=== PATIENT | male | born 2005 | race Caucasian/White ===

== ENCOUNTER 2023-02-13 11:29 | Day surgery (SDC) | payer OTHER, SELFPAY ==
--- NOTE | 2023-02-13 | PATH_ITS ---
[facility] Accession Number: [id number] No. of containers..02 Tissue . 01 Material submitted: . PART A: esophagus - ESOPHAGUS PART B: esophagus, E-G Junction - GE JUNCTION MASS . 01 Diagnosis: A. Esophagus, Biopsy: Squamous mucosa with mild reactive features of reflux esophagitis. Up to 2 eosinophils per high-power field. Negative for fungal organisms on AB/PAS stain. Negative for dysplasia or malignancy. . B. Gastroesophgeal Junction Mass, Biopsy: Squamocolumnar junctional mucosa with ulcer, consistent with severe reflux esophagitis. Negative for specialized intestinal metaplasia or fungal organisms on AB/PAS stain. Negative for cytomegalovirus or herpes simplex virus inclusions by immunohistochemistry. Negative for dysplasia or malignancy; please see comment. [facility] 02/21/2023 1443 Local . 01 Comment: Part B: The endoscopic impression of a gastroesophageal junction mass is noted. No neoplasm is identified in the sampled material. Correlation with clinical, endoscopic, and imaging findings to determine if this is business development representative of the lesion is recommended. . 01 Electronically signed: . Blas Chapman MD, PhD, Pathologist NPI- [id number] . 01 Gross description: . Part A: ESOPHAGUS: Received in formalin is multiple fragment(s) of arias, soft tissue measuring 0.3 x 0.1 x 0.1 cm in aggregate submitted entirely in 1 cassette(s) Part B: GE JUNCTION MASS: Received in formalin is multiple fragment(s) of arias, soft tissue measuring 0.7 x 0.4 x 0.1 cm in aggregate submitted entirely in 1 cassette(s) /[facility] 02/19/2023 1122 Local . 01 Microscopic: . A. An AB/PAS stain is performed to evaluate for fungal organisms and is negative. A control stain shows appropriate reactivity. . B. An AB/PAS stain is performed to evaluate for fungal organisms and is negative. Immunohistochemical stains are negative for cytomegalovirus or herpes simplex virus inclusions, respectively. All control stains show appropriate reactivity. . * This test was developed and its performance characteristics determined by [employer]. It has not been cleared or approved by the U.S. Food and Drug Administration. The FDA has determined that such clearance or approval is not necessary. This test is used for clinical purposes. It should not be regarded as investigational or for research. . 01 Pathologist provided ICD-10: R13.14, K21.00, K22.10 . 01 CPT . 862007, 862454, 901707, 882388, J42208, T36924 Specimen Comment: A courtesy copy of this report has been sent to [phone] Performed at: 01 [facility] Cyt[facility] [address] [place] [address], [place], [place] [id number] MD Stiven Betancourt MD Phone: [phone]
[2023-02-13 11:45] VITALS: BMI 31.7
[2023-02-13 11:48] VITALS: BP 135/81; PULSE 67; RESP 18; TEMP 36.2; O2SAT 97
[2023-02-13] MEDS: LACTATED RINGERS 1,000 ML 42 ML IV (11:56)
--- NOTE | 2023-02-13 12:32 | PM.PREOP ---
Pre-operative Note COVID-19 COVID-19 status: Negative Interval Note History & Physical reviewed/Exam performed by Physician: Yes Changes to H&P: No ASA Class (for procedural sedation): II
--- NOTE | 2023-02-13 12:33 | PM.OP.EGD ---
Operative Date/Time/Diagnoses Date of procedure: 02/13/23 Pre-op diagnosis: See indication and findings Procedure & Clinicians Study performed: EGD and possible dilation Indications: GE reflux regurgitation and substernal dysphagia Surgeon: Drew Dupont Procedure Notes Procedure in detail: After informed consent was obtained the patient was placed in left lateral decubitus position. The video upper scope was placed into the oropharynx and with the patient's help swelled into the esophagus. The esophagus stomach and duodenum were carefully examined. On withdrawal, retroflexed view the GE junction was performed. The scope was removed. The patient tolerated procedure well. Blood loss none Complications none Sedation mac Findings 1. Subtle furrows a longitudinal streaks from the mid to distal esophagus biopsies taken to rule out eosinophilic esophagitis 2. Wide open lower esophageal sphincter with focal superficial ulceration but also masslike sensation measuring about 2.5 cm. The center of this appeared adenomatous grossly. Biopsies were taken 3. Normal stomach 4. Normal duodenal bulb and sweep We will merely await biopsies before next steps. Certainly is possible that this area connected with significant ulceration could just be benign.
[2023-02-13 13:29] VITALS: BP 119/62; PULSE 82; RESP 13; TEMP 36.7; O2SAT 93
[2023-02-13 13:34] VITALS: BP 111/61; PULSE 65; RESP 20; O2SAT 97
[2023-02-13 13:39] VITALS: BP 119/75; PULSE 62; RESP 20; O2SAT 99
--- NOTE | 2023-02-13 13:44 | SUR.PHASEI ---
Dr. Dupont came and talked to pt. about his results.
[2023-02-13 13:45] VITALS: BP 134/87; PULSE 52; RESP 16; TEMP 36.4; O2SAT 99
== END 2023-02-13 15:41 | disposition home or self-care (01) ==
PROVIDERS: Referring Provider Internal Medicine Gastroenterology; Visit Provider Internal Medicine Gastroenterology
PROC: 0DJ08ZZ Inspection of Upper Intestinal Tract, Via Natural or Artificial Opening Endoscopic (ICD-10-PCS; CPT 43235; principal; 2023-02-13 12:30)
DX: K21.9 Gastro-esophageal reflux disease without esophagitis (principal); R13.14 Dysphagia, pharyngoesophageal phase; R11.10 Vomiting, unspecified; R12 Heartburn
CPT/HCPCS: 43239; J2704

== ENCOUNTER 2023-07-10 07:57 | Day surgery (SDC) | payer OTHER, SELFPAY ==
--- NOTE | 2023-07-10 | PATH_ITS ---
[facility] Accession Number: [id number] No. of containers..01 Tissue . 01 Material submitted: . esophagus - GE JUNCTION . 01 Diagnosis: Gastroesophageal Junction, Biopsy: Squamocolumnar junctional mucosa with reactive features of reflux esophagitis. Negative for specialized intestinal metaplasia on Alcian blue stain. Negative for dysplasia and malignancy. [facility] 07/23/2023 1114 Local . 01 Electronically signed: . Blas Chapman MD, PhD, Pathologist NPI- [id number] . 01 Gross description: . GE JUNCTION: Received in formalin is 2 fragment(s) of arias, soft tissue measuring 0.3 x 0.3 x 0.1 cm to 0.3 x 0.2 x 0.1 cm submitted entirely in 1 cassette(s) /[facility] 07/11/2023 0537 Local . 01 Microscopic: . An AB/PAS stain is performed to evaluate for specialized intestinal metaplasia and is negative for goblet cells. A control stain shows appropriate reactivity. . 01 Pathologist provided ICD-10: K21.00, R13.14 . 01 CPT . 888881, 071351 Specimen Comment: A courtesy copy of this report has been sent to [phone] Performed at: 01 [facility] [address], [place], [place] [id number] MD Stiven Betancourt MD Phone: [phone]
[2023-07-10 08:12] VITALS: BMI 32.5
[2023-07-10 08:18] VITALS: BP 127/81; PULSE 84; RESP 19; TEMP 36.3; O2SAT 95
[2023-07-10] MEDS: LACTATED RINGERS 1,000 ML 42 ML IV (08:22)
--- NOTE | 2023-07-10 08:33 | PM.HP.1 ---
History of Present Illness History of Present Illness Date Patient Seen: 07/10/23 Chief complaint: EGD Narrative: History of esophagitis with need to follow up and ensure complete healing. Possible removal of hyperplastic polyp [facility] Medical History (Updated 02/13/23 @ 11:44 by Christofer Diaz RN) Acid reflux Anxiety Social History household members: family Smoking Status: Current some day smoker Meds Home Medications and Allergies Home Medications Medication Instructions Recorded Confirmed Type sertraline 100 mg tablet 200 mg PO DAILY 02/13/23 07/10/23 History omeprazole 20 mg capsule,delayed 20 mg PO BID 07/10/23 07/10/23 History release Allergies Allergy/AdvReac Type Severity Reaction Status Date / Time No Known Drug Allergies Allergy Verified 07/10/23 08:11 Exam Vital Signs (past 8 hours): - 07/10/23 08:18 Temperature 97.3 F L Pulse Rate 84 Respiratory Rate 19 Blood Pressure 127/81 Pulse Oximetry 95 Oxygen Delivery Method Room Air Oxygen Delivery Method Room Air Narrative Exam Narrative: Oropharynx free of lesions Chest clear to auscultation percussion Cardiac exam reveals no S3 or murmur Assessment & Plan Assessment & Plan narrative: History of significant esophagitis need to check for complete healing while on omeprazole b.i.d.. Also possibility of hyperplastic polyp removal at the GE junction. Risks, benefits, alternatives have been explained.
--- NOTE | 2023-07-10 08:47 | PM.OP.EGD ---
Operative Date/Time/Diagnoses Date of procedure: 07/10/23 Pre-op diagnosis: See indication and findings Procedure & Clinicians Study performed: EGD Indications: Check for healing of esophagitis Surgeon: Drew Dupont Procedure Notes Procedure in detail: After informed consent was obtained the patient was placed in left lateral decubitus position. The video upper scope was placed into the oropharynx and with the patient's help swallowed into the esophagus. The esophagus stomach and duodenum were carefully examined. On withdrawal, retroflexed view the GE junction was performed. The scope was removed. The patient tolerated procedure well. Blood loss none Complications none Sedation mac Findings 1. Esophagus with some degree of free reflux. GE junction was completely free of any inflammatory disease. Previous structure call they ?possible inflammatory polyp? is far smaller and less polypoid. The area was biopsied x2 which covered most of it. It was elected given its appearance and sedation to not proceed further. 2. Normal stomach duodenal bulb and sweep Patient should continue his omeprazole due to is of significant reflux and return in 1 year for follow-up EGD and biopsy if necessary under heavy sedation.
[2023-07-10 09:30] VITALS: BP 106/56; PULSE 93; RESP 23; TEMP 37.3; O2SAT 96
[2023-07-10 09:35] VITALS: BP 116/65; PULSE 87; RESP 13; O2SAT 93
[2023-07-10 09:40] VITALS: BP 101/63; PULSE 82; RESP 12; O2SAT 94
[2023-07-10 09:45] VITALS: BP 101/66; PULSE 76; RESP 14; TEMP 36.6; O2SAT 96
== END 2023-07-10 10:00 | disposition home or self-care (01) ==
PROVIDERS: Referring Provider Internal Medicine Gastroenterology; Visit Provider Internal Medicine Gastroenterology
PROC: 0DJ08ZZ Inspection of Upper Intestinal Tract, Via Natural or Artificial Opening Endoscopic (ICD-10-PCS; CPT 43235; principal; 2023-07-10 09:00)
DX: K21.00 Gastro-esophageal reflux disease with esophagitis, without bleeding (principal)
CPT/HCPCS: 43239

== ENCOUNTER → 2025-06-17 14:23 | Outpatient (CLI) | payer OTHER, SELFPAY | LOC: LAB 14:24 | PROVIDERS: Visit Provider Nurse Practitioner Family | DX: R30.0 Dysuria (principal) | CPT/HCPCS: 87086 ==